=== PATIENT | female | born 1975 | race Caucasian/White ===

== ENCOUNTER 2023-02-06 04:19 | Emergency (ER) | payer OTHER, SELFPAY ==
[2023-02-06 04:22] VITALS: BP 159/100; PULSE 91; RESP 15; TEMP 36.4; O2SAT 100
== END 2023-02-06 06:55 | disposition left against medical advice (07) ==
LOC: ANHED 06:54
PROVIDERS: PCP Internal Medicine Gastroenterology
DX: K08.89 Other specified disorders of teeth and supporting structures (principal)
CPT/HCPCS: 99199